=== PATIENT | male | born 1995 | race Caucasian/White ===

== ENCOUNTER 2023-06-19 20:40 | Emergency (ER) | payer OTHER, MEDICARE, SELFPAY ==
[2023-06-19 21:26] VITALS: BP 135/98; PULSE 92; RESP 18; TEMP 36.6; O2SAT 97; BMI 29.7
[2023-06-19] MEDS: BUPIVACAINE 0.25% 30 ML INJECTION (22:17)
--- NOTE | 2023-06-23 00:49 | ED.GENADULT ---
HPI - General Adult General Chief complaint: Dental/Oral/Mouth Injury/Pain Stated complaint: abscess tooth left side. Time Seen by Provider: 06/19/23 21:44 History of Present Illness HPI narrative: at dentist on Wednesday, L lower wisdom tooth needs to be taken out, cannot get in until june. today pain very bad. has tried to call 4 different emergency dentists without any being able to be seen. took some Aleve around 1600. nothing is helping. pain is causing nausea as well, patient threw up while waiting. 28 year old man accompanied by Mom and SO presents to the ER with complaint of worsening dental pain. Saw their dentist yesterday on Wednesday. Apparently the wisdom tooth in the left lower jaw needs to be taken out. Is going to be a couple of weeks before they can be seen in clinic. Mom has been assisting in trying to find appointments. They called for different emergency dental clinics but can not get in. Tried some naproxen but not helping. Having so much pain causing nausea. Actually vomited in the waiting room. No drainage. No fever. Noted by mom to be on the spectrum with sensory issues complicating care; would rather not come to the ER for example. Actually may have managed to get an emergency appointment after the weekend Related Data Previous Rx's Medication Instructions Recorded hydrocodone 5 mg-acetaminophen 325 1 - 2 tab PO Q4-6H PRN pain #10 06/19/23 mg tablet tabs Allergies Allergy/AdvReac Type Severity Reaction Status Date / Time No Known Drug Allergies Allergy Verified 06/19/23 21:32 Review of Systems Status of ROS: Reports: 6 or more systems reviewed and unremarkable except as noted in History and below [facility] Social History Smoking Status: Never smoker Do you use any of these nicotine containing products: None How often do you have a drink containing alcohol: never AUDIT-C Alcohol total score: 0 Non-prescribed substance use: denies use Exam Narrative: Exam Narrative: Seated quietly in exam chair. Looks very uncomfortable. Hand at left jaw. Breathing easily. Head looks to be atraumatic. There is no discrete TMJ area pain. No kay swelling no redness noted externally. Neck is supple without lymphadenopathy. Oropharyngeal exam with out significant abnormalities swelling or redness. There is gum tissue over growing the left posterior most molar. Tender. Const: Documenting provider has reviewed patient's vital signs: yes Course Vital Signs Vital signs: Initial Vital Signs Temperature 97.9 F 06/19/23 21:26 Temperature Source Temporal Artery Scan 06/19/23 21:26 Pulse Rate 92 06/19/23 21:26 Respiratory Rate 18 06/19/23 21:26 Blood Pressure 135/98 H 06/19/23 21:26 Blood Pressure Mean 110 H 06/19/23 21:26 Blood Pressure Position Sitting 06/19/23 21:26 Pulse Oximetry 97 06/19/23 21:26 Oxygen Delivery Method Room Air 06/19/23 21:26 Vital Signs Temperature 97.9 F 06/19/23 21:26 Pulse Rate 92 06/19/23 21:26 Respiratory Rate 18 06/19/23 21:26 Blood Pressure 135/98 H 06/19/23 21:26 Pulse Oximetry 97 06/19/23 21:26 Oxygen Delivery Method Room Air 06/19/23 21:26 Temperature 97.9 F 06/19/23 21:26 Pulse Rate 92 06/19/23 21:26 Respiratory Rate 18 06/19/23 21:26 Blood Pressure 135/98 H 06/19/23 21:26 Pulse Oximetry 97 06/19/23 21:26 Oxygen Delivery Method Room Air 06/19/23 21:26 Medical Decision Making MDM Narrative Medical decision making narrative: Unclear to me if there would be some sort of apical abscess or otherwise. Not evident externally. I do believe pain is present. I did offer dental block and maybe a little to Mom's surprise, Randy readily accepted. Without significant difficulty I did place left-sided inferior alveolar nerve block and supplemental buccal nerve block infiltrating a total of 3 mL of 0.25% bupivacaine. Very good anesthesia was achieved. Seemed relieved. We discussed further needs for likely pain management and potential benefit of antibiotics anticipating follow-up cares. See patient discharge plan Medical Records Medical records reviewed: Yes I reviewed the patient's medical records Discharge Plan Discharge Clinical Impression: Pain, dental Patient Disposition: Home w/ Parent or Adult Condition: Improved Additional Instructions: Stay well-hydrated. Can take up to 800 mg of ibuprofen or up to 1000 mg of acetaminophen per dose. Alternative to the ibuprofen would be up to 500 mg of naproxen 2 times daily. Remember that each tablet of [place] contains 325 mg of acetaminophen. Penicillin from [facility]. Unfortunately we are out of [place] in our [facility]. Will give you a couple of tabs of [place] for tonight and then more sent to your pharmacy. Hope that appointment on Wednesday works out for you. Prescriptions: New hydrocodone-acetaminophen 5-325 mg tablet 1 - 2 tab PO Q4-6H PRN (Reason: pain) Qty: 10 0RF Follow Up/Referrals: Gardenia Grey MD [Primary Care Provider] - Stand Alone Forms: Dian[facility]ian Info Instructions
== END 2023-06-19 23:10 | disposition home or self-care (01) ==
PROVIDERS: Emergency Provider Family Medicine; PCP Family Medicine
DX: R19.8 Other specified symptoms and signs involving the digestive system and abdomen (principal); K08.89 Other specified disorders of teeth and supporting structures
CPT/HCPCS: 64400; 99283; 99284; J0665